=== PATIENT | male | born 1995 | race Caucasian/White ===

== ENCOUNTER → 2016-05-01 | Outpatient (CLI) | payer OTHER ==
--- NOTE | 2016-05-01 11:21 | ECHOF ---
Referral Reason:R00.2 palpitations MEASUREMENTS -------- HEIGHT: 177.8 cm WEIGHT: 65.8 kg BP: IVSd: 1.0 cm (0.6 - 1.1) LVIDd: 3.4 cm (3.9 - 5.3) LVPWd: 1.2 cm (0.6 - 1.1) IVSs: 1.5 cm LVIDs: 2.4 cm LVPWs: 1.8 cm Ao Diam: 3.0 cm (2.0 - 3.7) AV Cusp: 2.2 cm (1.5 - 2.6) LA Diam: 2.8 cm (2.7 - 3.8) MV EXCURSION: 12.148 mm (> 18.000) MV EF SLOPE: 100 mm/s (70 - 150) EPSS: 0.9 cm MV E Luis Daniel: 0.79 m/s MV DecT: 230 ms MV A Luis Daniel: 0.48 m/s MV E/A Ratio: 1.64 RAP: 5.00 mmHg RVSP: 13.82 mmHg FINDINGS -------- Sinus rhythm. This was a technically good study. Left ventricular wall thickness is normal. Overall left ventricular systolic function is normal with, an EF between 55 - 60 %. The right ventricle is normal in size and function. The left atrium is normal in size. The right atrium is normal in size. The aortic valve is trileaflet, and appears structurally normal. No aortic stenosis or regurgitation. There is trace mitral regurgitation. Trace tricuspid regurgitation present. The right ventricular systolic pressure, as measured by Doppler, is 13.82mmHg. Pulmonic valve appears structurally normal. The aortic root size is normal. The pericardium is normal. CONCLUSIONS -------- 1. Sinus rhythm. 2. Trace tricuspid regurgitation present. 3. The right ventricular systolic pressure, as measured by Doppler, is 13.82mmHg. 4. Pulmonic valve appears structurally normal. 5. The aortic root size is normal. 6. The pericardium is normal. 7. This was a technically good study. 8. Left ventricular wall thickness is normal. 9. Overall left ventricular systolic function is normal with, an EF between 55 - 60 %. 10. The right ventricle is normal in size and function. 11. The left atrium is normal in size. 12. The right atrium is normal in size. 13. The aortic valve is trileaflet, and appears structurally normal. No aortic stenosis or regurgitation. 14. There is trace mitral regurgitation. LINING MECHANIC: Jamaica Cortez RDCS
--- NOTE | 2016-05-06 12:40 | EM ---
DATE OF SERVICE: AGE: 20Y SEX: M INDICATIONS: Patient was monitored for 24 hours. Baseline rhythm is sinus mechanism with normal conduction. The average rate 79 beats per minute, with maximum 156 beats per minute. Ventricular ectopic activity was not present. Supraventricular ectopic activity was present in the form of rare single PACs. No symptoms were reported. CONCLUSION: 1. Sinus mechanism with baseline rhythm. 2. No ventricular ectopic activity. 3. Rare supraventricular ectopic activity. 4. No symptoms were reported.
== END | disposition home or self-care (01) ==
LOC: RADECHMAIN 10:32
PROVIDERS: ATTEND Family Medicine
DX: I07.1 Rheumatic tricuspid insufficiency (principal); I34.0 Nonrheumatic mitral (valve) insufficiency
CPT/HCPCS: 93225; 93226; 93306